=== PATIENT | female | born 1975 | race Caucasian/White ===

== ENCOUNTER → 2019-03-29 | Outpatient (CLI) | payer OTHER | END | disposition home or self-care (01) | LOC: CFH 12:26 | PROVIDERS: ATTEND Obstetrics & Gynecology | DX: N64.4 Mastodynia (principal) | CPT/HCPCS: 76641; 77066; G0279 ==

== ENCOUNTER 2020-12-17 10:59 | Outpatient (CLI) | payer OTHER ==
[2020-12-17] MEDS ORDERED: SUMA100T3 PO (11:22)
[2020-12-17] MEDS ORDERED: FREM225S INJ (11:22)
[2020-12-23] MEDS ORDERED: IBUPROFEN 600 MG TABLET PO PRN (10:00)
[2020-12-23] MEDS ORDERED: LACTATED RINGERS 1,000 ML IV SCH (10:00)
[2020-12-23] MEDS ORDERED: HYDROcodone/APAP 5/325 TABLET PO PRN (10:00)
[2020-12-23] MEDS ORDERED: PROMETHAZINE 25 MG SUPP PR ONE (10:00)
[2020-12-23] MEDS ORDERED: ONDANSETRON 2MG/ML, 2ML IVPush PRN (10:00)
[2020-12-23] MEDS ORDERED: PLEASE ENTER HEIGHT AND WEIGHT MC SCH (12:00)
== END 2020-12-17 23:59 | disposition home or self-care (01) ==
LOC: STAR 10:59
PROVIDERS: ATTEND Obstetrics & Gynecology Female Pelvic Medicine and Reconstructive Surgery
DX: Z02.9 Encounter for administrative examinations, unspecified (principal)

== ENCOUNTER 2020-12-23 05:44 | Day surgery (SDC) | payer OTHER ==
[~2020-12-23] VITALS: Ht 172.7 cm; Wt 77.0 kg
[~2020-12-23 05:44] MED LIST: FREM225S INJ; SUMA100T3 PO
[2020-12-23] MEDS ORDERED: CHLORHEXIDINE 15 ML UDC MM STA (06:13)
[2020-12-23] MEDS ORDERED: CHLORHEXIDINE 15 ML UDC ONE (06:14)
[2020-12-23] MEDS ORDERED: LACTATED RINGERS 1,000 ML IV SCH ×2 (06:30→11:00)
[2020-12-23] MEDS ORDERED: MIDAZOLAM 1 MG/ML, 2ML ONE (06:41)
[2020-12-23] MEDS ORDERED: FENTANYL PF 250 MCG/5ML ONE ×2 (06:41→08:07)
[2020-12-23 06:42] LABS: HCG UR SG 1.015 (1.003-1.030)
[2020-12-23] MEDS ORDERED: KETOROLAC 30 MG/1 ML ONE (06:44)
[2020-12-23] MEDS ORDERED: INDIGO CARMINE 0.8%, 5ML ONE (06:58)
[2020-12-23] MEDS ORDERED: BUPIVACAINE/PF 0.25% ONE (06:58)
[2020-12-23] MEDS ORDERED: EPINEPHRINE 1 MG/ML, 1ML ONE (06:58)
[2020-12-23] MEDS ORDERED: LABETALOL 5MG/ML, 20ML IV PRN (07:30)
[2020-12-23] MEDS ORDERED: MEPERIDINE/PF 25MG/0.5ML IVPush PRN (07:30)
[2020-12-23] MEDS ORDERED: PROMETHAZINE 25 MG/ML, 1ML IVPush PRN (07:30)
[2020-12-23] MEDS ORDERED: hydrALAzine 20 MG/ML, 1ML IV PRN (07:30)
[2020-12-23] MEDS ORDERED: OXYcodone 5 MG/5 ML ORAL.SOL UDC PO PRN (07:30)
[2020-12-23] MEDS ORDERED: morphine SULFATE 10 MG/ML, 1ML IVPush PRN (07:30)
[2020-12-23] MEDS ORDERED: HALOPERIDOL 5 MG/ML IV PRN (07:30)
[2020-12-23] MEDS ORDERED: HYDROmorphone 1 MG/ML, 1ML INJ IVPush PRN (07:30)
[2020-12-23] MEDS ORDERED: ACETAMINOPHEN 325 MG TABLET PO PRN (07:30)
[2020-12-23] MEDS ORDERED: DEXAMETHASONE 4 MG/ML, 5ML ONE (07:35)
[2020-12-23] MEDS ORDERED: BUPIVACAINE/PF-EPI 0.25% 1:200K INFIL ONE (07:49)
[2020-12-23] MEDS ORDERED: ROCURONIUM 10MG/ML,5ML ONE (08:07)
[2020-12-23] MEDS ORDERED: CEFAZOLIN 1,000 MG ONE (08:07)
[2020-12-23] MEDS ORDERED: NEOSTIGMINE 1 MG/ML, 10ML ONE (08:07)
[2020-12-23] MEDS ORDERED: ONDANSETRON 2MG/ML, 2ML ONE (08:07)
[2020-12-23] MEDS ORDERED: GLYCOPYRROLATE 0.2MG/1ML, 5ML ONE (08:07)
[2020-12-23] MEDS ORDERED: PROPOFOL 10 MG/ML, 20ML ONE (08:07)
[2020-12-23] MEDS ORDERED: SILVER NITRATE STICK TP ONE ×2 (09:37→09:40)
[2020-12-23] MEDS ORDERED: OXYcodone 5 MG/5 ML ORAL.SOL UDC ONE (09:58)
[2020-12-23] MEDS ORDERED: FENTANYL PF 100 MCG/2ML ONE (09:58)
[2020-12-23] MEDS ORDERED: HYDROmorphone 1 MG/ML, 1ML INJ ONE (09:58)
[2020-12-23] MEDS: FENTANYL PF 100 MCG/2ML IV PRN ×2 (10:04→10:09)
[2020-12-23] MEDS ORDERED: HYDROcodone/APAP 5/325 TABLET PO PRN (11:00)
[2020-12-23] MEDS ORDERED: IBUPROFEN 600 MG TABLET PO PRN (11:00)
[2020-12-23] MEDS ORDERED: ONDANSETRON 2MG/ML, 2ML IVPush PRN (11:00)
[2020-12-23] MEDS ORDERED: PROMETHAZINE 25 MG SUPP PR ONE (11:00)
== END 2020-12-23 13:30 | disposition home or self-care (01) ==
LOC: OUT 05:44
PROVIDERS: ATTEND Obstetrics & Gynecology Female Pelvic Medicine and Reconstructive Surgery
DX: N94.19 Other specified dyspareunia (principal); D25.1 Intramural leiomyoma of uterus; G43.909 Migraine, unspecified, not intractable, without status migrainosus; Z72.89 Other problems related to lifestyle; Z79.899 Other long term (current) drug therapy; Z98.890 Other specified postprocedural states
CPT/HCPCS: 57268; 58542; 81025; 88307; J0171; J0690; J1100; J1170; J1885; J2250; J2405; J2704; J2710; J3010; J7120; S2900